=== PATIENT | male | born 1990 | race Asian ===

== ENCOUNTER 2018-10-25 08:48 | Outpatient (CLI) | payer BC ==
--- NOTE | 2018-10-25 12:19 | XRAY Report ---
Reason: NONSPECIFIC REACTION TO SKIN TEST W/O ACTIVE TUBER Procedure Date: 10/25/2018 Accession Number: [id number] / [id number] Procedure: XRN - Chest 2 View X-Ray CPT Code: 67549 FULL RESULT: EXAM: CHEST RADIOGRAPHY EXAM DATE: 10/25/2018 09:04 AM. CLINICAL HISTORY: Nonspecific reaction to skin test w/o active tuber. COMPARISON: None. TECHNIQUE: 2 views. FINDINGS: Lungs/Pleura: No focal opacities evident. No pleural effusion. No pneumothorax. Normal volumes. Mediastinum: Heart and mediastinal contours are unremarkable. Other: None. IMPRESSION: Normal 2-view chest radiography. [facility]
== END 2018-10-25 08:49 | disposition home or self-care (01) ==
LOC: DI.N 08:48
PROVIDERS: ATTEND Specialist
DX: R76.11 Nonspecific reaction to tuberculin skin test without active tuberculosis (principal)
CPT/HCPCS: 71046

== ENCOUNTER 2023-10-05 12:40 | Outpatient (CLI) | payer OTHER ==
--- NOTE | 2023-10-05 14:15 | MRI Report ---
PROCEDURE: Lumbar Spine WO INDICATIONS: LOW BACK PAIN TECHNIQUE: Noncontrast sagittal T1 spin echo and T2 fast echo, sagittal STIR, axial T1 and T2 fast spin echo thr ough the lumbar spine. COMPARISON: None. FINDINGS: Image quality: Excellent. Transitional spinal anatomy is noted at the lumbosacral junction. For the purposes of this report, th e 1st nonrib-bearing vertebral body is designated as L1 and the lumbosacral transitional element is d esignated as S1 with a rudimentary disc space at S1-2. Alignment and Curvature: There is straightening of the normal lumbar lordosis. Bone Marrow: Marrow is of normal overall signal. No acute vertebral body compression fractures. Spinal Cord: Conus medullaris terminates at the L1-2 level. Visualized cord demonstrates normal sig nal and size. Paraspinous Soft Tissues: No paravertebral masses. T12-L1: No significant spinal canal stenosis or neuroforaminal narrowing. L1-L2: Mild disc desiccation and loss of disc space height is seen with circumferential disc bulgi ng. Findings result in mild narrowing of the spinal canal without significant neuroforaminal narrowin g. L2-L3: Mild disc desiccation. No significant spinal canal stenosis or neuroforaminal narrowing. L3-L4: No significant spinal canal stenosis or neuroforaminal narrowing. L4-L5: Mild disc desiccation and mild bilateral facet hypertrophy. Findings result in mild bilatera l neural foraminal narrowing without significant spinal canal stenosis. L5-S1: Disc desiccation and mild loss of disc space height with focal central to right paracentral disc extrusion measuring 9 x 4 x 9 mm with a small amount of disc material extending inferiorly along the posterior S1 vertebral body. Findings result in mild narrowing of the right lateral recess. Disc material abuts the traversing right S1 nerve root in the lateral recesses without definite impingeme nt as positioned on this exam. There is also mild bilateral facet hypertrophy resulting in mild to mo derate bilateral neural foraminal narrowing. No significant central canal stenosis. IMPRESSION: 1.At L5-S1, degenerative changes and right paracentral disc extrusion resulting crowding of the right lateral recess with disc material abutting but not definitely impinging upon the traversing right S1 nerve root. There is also mild to moderate neuroforaminal narrowing at this level. Recommend correla tion with neurologic exam findings. 2.Additional mild multilevel degenerative disc disease and facet hypertrophy as described in detail i n the body of the report without high-grade spinal canal stenosis or high-grade neuroforaminal narrow ing. Reviewed by: David Oneil MD on 10/05/2023 2:13 PM PDT Approved by: David Oneil MD on 10/05/2023 2:13 PM PDT Station ID: [id number]
== END 2023-10-05 12:41 | disposition home or self-care (01) ==
LOC: DI 12:40
PROVIDERS: ATTEND Internal Medicine
DX: M51.36 Other intervertebral disc degeneration, lumbar region (principal); M48.061 Spinal stenosis, lumbar region without neurogenic claudication; M51.27 Other intervertebral disc displacement, lumbosacral region; M51.37 Other intervertebral disc degeneration, lumbosacral region; M48.07 Spinal stenosis, lumbosacral region; M47.817 Spondylosis without myelopathy or radiculopathy, lumbosacral region; M47.816 Spondylosis without myelopathy or radiculopathy, lumbar region